=== PATIENT | male | born 1985 | race Caucasian/White ===

== ENCOUNTER 2023-12-30 18:10 | Emergency (ER) | payer SELFPAY ==
[~2023-12-30] VITALS: Wt 59.1 kg
[2023-12-30 18:20] VITALS: TEMP 98.6
[2023-12-30] MEDS ORDERED: PREDNISONE20 MG PO (19:23)
[2023-12-30] MEDS ORDERED: ATARAX50 MG PO (19:23)
[2023-12-30] MEDS ORDERED: dexAMETHasone 10 MG/ML VIAL IM ONE (19:30)
[2023-12-30] MEDS ORDERED: diphenhydrAMINE 50 MG/ML 1 ML VIAL IM ONE (19:30)
[2023-12-30 19:55] VITALS: BP 128/68; PULSE 85
== END 2023-12-30 19:55 | disposition home or self-care (01) ==
LOC: COL.ER 18:10
DX: T78.40XA Allergy, unspecified, initial encounter (principal); X58.XXXA Exposure to other specified factors, initial encounter
CPT/HCPCS: J1100; J1200

== ENCOUNTER 2024-01-20 15:34 | Emergency (ER) | payer SELFPAY ==
[~2024-01-20] VITALS: Ht 160 cm; Wt 63.0 kg
[~2024-01-20 15:34] MED LIST: ATARAX50 MG PO; PREDNISONE20 MG PO
[2024-01-20 15:43] VITALS: BP 135/87; TEMP 98.5
[2024-01-20] MEDS ORDERED: TRIAMCINOLONE A15 GM TP (17:26)
[2024-01-20] MEDS ORDERED: CEPHALEXIN500 M1 PO (17:26)
[2024-01-20 17:29] VITALS: PULSE 78
== END 2024-01-20 17:29 | disposition home or self-care (01) ==
LOC: COL.ER 15:34
DX: R21 Rash and other nonspecific skin eruption (principal)